=== PATIENT | female | born 1985 | race Caucasian/White ===

== ENCOUNTER 2019-01-22 11:30 | Emergency (ER) | payer SELFPAY ==
[~2019-01-22] VITALS: Ht 157.4 cm; Wt 79.4 kg
[2019-01-22] MEDS ORDERED: HYDR1%LOT T (13:49)
== END 2019-01-22 14:06 | disposition home or self-care (01) ==
LOC: ED 11:30
DX: L20.9 Atopic dermatitis, unspecified (principal); Z91.040 Latex allergy status